=== PATIENT | male | born 1980 | race Caucasian/White ===

== ENCOUNTER 2023-10-14 10:01 | Emergency (ER) | payer SELFPAY ==
[~2023-10-14] VITALS: Ht 157.5 cm; Wt 63.5 kg
[~2023-10-14 10:01] MED LIST: SERT-514 PO
[2023-10-14 10:09] VITALS: BP 138/91; PULSE 72; RESP 18; TEMP 97.9; O2SAT 99
[2023-10-14] MEDS ORDERED: [UNRECOGNIZED DRUG - CODE] TP (10:34)
[2023-10-14] MEDS ORDERED: PRED20TA5 PO (10:34)
[2023-10-14] MEDS ORDERED: CLOT1CRE82 TP (10:34)
== END 2023-10-14 10:58 | disposition home or self-care (01) ==
LOC: MED 10:01
DX: L20.9 Atopic dermatitis, unspecified (principal); Z88.0 Allergy status to penicillin; Z79.899 Other long term (current) drug therapy
CPT/HCPCS: 99283